=== PATIENT | male | born 2000 | race Hispanic/Latino ===

== ENCOUNTER 2021-05-12 19:10 | Emergency (ER) | payer SELFPAY ==
[~2021-05-12] VITALS: Ht 170.2 cm; Wt 95.3 kg
[~2021-05-12 19:10] MED LIST: CIPRO500 MG PO; METRONIDAZOLE500 MG PO
[2021-05-12] MEDS ORDERED: IBUPROFEN600 MG PO (20:20)
[2021-05-12] MEDS ORDERED: KETOROLAC TROMETHAMINE 60 MG/2 ML VIAL IM ONE (20:30)
[2021-05-12] MEDS ORDERED: KETOROLAC TROMETHAMINE 60 MG/2 ML VIAL ONE (20:30)
== END 2021-05-12 21:04 | disposition home or self-care (01) ==
LOC: ER 19:18
DX: M54.50 Low back pain, unspecified (principal); V00.131D Fall from skateboard, subsequent encounter; F17.210 Nicotine dependence, cigarettes, uncomplicated
CPT/HCPCS: 99282; J1885

== ENCOUNTER 2022-02-13 18:04 | Emergency (ER) | payer OTHER ==
[~2022-02-13] VITALS: Ht 172.7 cm; Wt 95.3 kg
[~2022-02-13 18:04] MED LIST changes: +IBUPROFEN600 MG PO
[2022-02-13] MEDS ORDERED: IBUPROFEN 600 MG TAB PO STA (18:41)
== END 2022-02-13 19:49 | disposition home or self-care (01) ==
LOC: ER 18:39
DX: S69.91XA Unspecified injury of right wrist, hand and finger(s), initial encounter (principal); W22.09XA Striking against other stationary object, initial encounter; Y92.89 Other specified places as the place of occurrence of the external cause
CPT/HCPCS: 99283